=== PATIENT | male | born 1980 | race Caucasian/White ===

== ENCOUNTER 2018-12-05 12:06 | Emergency (ER) | payer BC, OTHER ==
--- OUTSIDE RECORDS SUMMARY | 2018-12-05 12:17 | XMS REPORT | Summary of Care ---
:1980 Author Organization [facility] Address [address] [place] [id number] Care Team Providers Name Role Phone Bryan Fernandes Primary Care Provider Encounter Details Date Type Department Care Team Description 11/20/2018 Orders Only [facility] Doctor Unassigned, No [address] [facility] Name [place] [phone] Allergies Active Allergy Reactions Severity Noted Date Comments Iodine Unknown - See comments 11/16/2015 Skin irration almendarez documented as of this encounter (statuses as of 11/20/2018) Medications Medication Sig Dispensed Refills Start Date End Date Status losartan potassium Take by mouth. 0 Active (LOSARTAN ORAL) escitalopram oxalate Take by mouth. 0 Active (LEXAPRO ORAL) documented as of this encounter (statuses as of 11/20/2018) Active Problems Not on filedocumented as of this encounter (statuses as of 11/20/2018) Social History Tobacco Use Types Packs/Day Years Used Date Never Smoker Alcohol Use Drinks/Week oz/Week Comments Yes 0 Standard drinks or equivalent 0.0 Sex Assigned at Date Recorded Not on file Job Start Date Occupation Industry Not on file Not on file Not on file Travel History Travel Start Travel End No recent travel history available. documented as of this encounter Last Filed Vital Signs Not on filedocumented in this encounter Plan of Treatment Health Maintenance Due Date Last Done Comments DTaP,Tdap,and Td Vaccines (1 - 1997 Tdap) INFLUENZA VACCINE (Retired 12/02/2018 version) PNEUMOCOCCAL 0-64 YEARS COMBINED Aged Out No longer eligible based on SERIES patient's age to complete this topic documented as of this encounter Procedures Procedure Name Priority Date/Time Associated Diagnosis Comments CONSENT/REFUSAL FOR Routine 11/20/2018 8:30 PM CDT DIAGNOSIS AND TREATMENT documented in this encounter Results Not on filedocumented in this encounter Insurance Payer Benefit Plan / Subscriber ID Effective Phone Address Type Group Dates [facility] [id number] 2015-Pres HMO/PPO/ HEALTHCARE HEALTHCARE PPO ent POS [facility] [id number] 2016-Pres [phone] PPO/POS ent [id number] [place] [address] documented as of this encounter
--- OUTSIDE RECORDS SUMMARY | 2018-12-05 12:17 | XMS REPORT ---
:1980 Author Organization [facility] Address [address] [place] [address] Care Team Providers Name Role Phone Unavailable Unavailable Unavailable Problems This patient has no known problems. Allergies, Adverse Reactions, Alerts This patient has no known allergies or adverse reactions. Medications This patient has no known medications.
--- OUTSIDE RECORDS SUMMARY | 2018-12-05 12:17 | XMS REPORT | Summary of Care ---
:1980 Author Organization [facility] Address [address] [place] [address] Care Team Providers Name Role Phone Bryan Fernandes Primary Care Provider Reason for Visit Reason Comments ITCHING Auth/Cert Status Reason Specialty Diagnoses / Referred By Referred To Procedures Contact Contact Emergency Medicine Diagnoses itching [facility] [address] [place] [address] [place] [address] Encounter Details Date Type Department Care Team Description 11/20/2018 Emergency [facility]-Emergency Ellen Chapman, Allergic reaction, Department PAC initial encounter [address] [place] [address] [facility] (Primary Dx) [place] [address] [facility] [address] [place] [address] Allergies Active Allergy Reactions Severity Noted Date Comments Iodine Unknown - See comments 11/16/2015 Skin irration almendarez documented as of this encounter (statuses as of 11/20/2018) Medications Medication Sig Dispensed Refills Start Date End Date Status losartan potassium Take by mouth. 0 Active (LOSARTAN ORAL) escitalopram oxalate Take by mouth. 0 Active (LEXAPRO ORAL) methylPREDNISolone Take by mouth 21 Each 0 11/20/2018 Active (MEDROL, MARY CARMEN,) 4 mg SEE-INSTRUCTIONS tabletsIndications: . follow package Allergic reaction, directions initial encounter documented as of this encounter (statuses as [...] of this encounter Last Filed Vital Signs Vital Sign Reading Time Taken Comments Blood Pressure 177/67 11/20/2018 11:51 PM CDT Pulse 76 11/20/2018 11:51 PM CDT Temperature 37.1 C (98.7 F) 11/20/2018 8:49 PM CDT Respiratory Rate 18 11/20/2018 11:51 PM CDT Oxygen Saturation 96% 11/20/2018 11:51 PM CDT Inhaled Oxygen Concentration - - Weight 138.3 kg (305 lb) 11/20/2018 8:49 PM CDT Height 177.8 cm (5' 10") 11/20/2018 8:49 PM CDT Body Mass Index 43.76 11/20/2018 8:49 PM CDT documented in this encounter Discharge Instructions AttachmentsThe following attachments cannot be sent through Care Everywhere.Allergic Reactions, General (Malaysian)documented in this encounter Plan of Treatment Health Maintenance Due Date Last Done Comments DTaP,Tdap,and Td Vaccines ( - 1997 Tdap) INFLUENZA VACCINE (Retired 12/02/2018 version) PNEUMOCOCCAL 0-64 YEARS COMBINED Aged Out No longer eligible based on SERIES patient's age to complete this topic documented as of this encounter Procedures Procedure Name Priority Date/Time Associated Diagnosis Comments NOTICE OF PRIVACY Routine 11/20/2018 8:30 PM CDT PRACTICES documented in this encounter Results Not on filedocumented in this encounter Visit Diagnoses Diagnosis Allergic reaction, initial encounter - Primary documented in this encounter Administered Medications Medication Order MAR Action Action Date Dose Rate Site diphenhydrAMINE (BENADRYL) tablet Given 11/20/2018 11:42 PM CDT 50 mg 50 mg 50 mg, Oral, ONCE, 1 dose, Mon11/21/18 at 0030, MARINA famotidine (PEPCID) tablet 40 mg Given 11/20/2018 11:43 PM CDT 40 mg 40 mg, Oral, ONCE, 1 dose, Mon11/21/18 at 0030, MARINA methylprednisolone sod succ Given 11/20/2018 11:42 PM 125 mg Right Dorsogluteal-IM (SOLU-MEDROL) injection 125 CDT mg 125 mg, Intramuscular, ONCE, 1 dose, Mon11/21/18 at 0030, STAT documented in this encounter Insurance Payer Benefit Plan Subscriber ID Effective Dates Phone Address Type / Group [employer] [facility] [id number] 2016-Phillip [phone] [address] PPO/POS [place] [id number] [place] [address] [phone] [id number] (Work) documented as of this encounter
[2018-12-05 13:51] LABS: Absolute Lymphocytes (CBC) 1.8 K/uL (0.7-4.9); Basophils % 0.6 % (0-1.3); Hematocrit 50.1 % (39.6-49.0); Lymphocytes % 26.2 % (15.3-44.8); MPV 8.5 fL (7.6-11.3); RBC Red Blood Cell Count 5.84 M/uL (4.33-5.43)
[2018-12-05 14:27] LABS: Albumin 3.9 g/dL (3.4-5.0); Bilirubin Direct 0.1 mg/dL (0-0.2); Bilirubin Total 0.4 mg/dL (0.2-1.0); Potassium 4.1 mmol/L (3.5-5.1); Protein, Total 7.4 g/dL (6.4-8.2)
--- NOTE | 2018-12-05 14:37 | RAD REPORT ---
EXAM DESCRIPTION: CT - Abdomen Pelvis Wo Contrast - 12/05/2018 2:06 pm CLINICAL HISTORY: ABD PAIN Patient also indicates pain is in the right upper quadrant COMPARISON: No comparisons None. TECHNIQUE: Axial [address] imaging of the abdomen and pelvis was performed without IV contrast. No IV contrast was given because of allergy, abnormal renal function, patient refusal or physician re quest. No oral contrast. All CT scans are performed using dose optimization technique as appropriate and may include automated exposure control or mA/KV adjustment according to patient size. FINDINGS: No suspicious findings in the lung bases. The liver, spleen and pancreas show no suspicious findings on non-contrast imaging. Gallbladder and b iliary tree are also without suspicious finding. Gallstones can be occult on CT imaging. No hydronephrosis or suspicious renal mass. No significant adrenal finding. Isodense renal masses an d pyelonephritis cannot be excluded in the absence of IV contrast. The urinary bladder is without sig nificant finding. No dilated bowel loops or bowel wall thickening. Appendix is normal. No free air, free fluid or infla mmatory stranding. No hernia, mass or bulky lymphadenopathy. No suspicious bony findings. IMPRESSION: Non-contrast enhanced CT abdomen and pelvis imaging show no significant or suspicious fi nding. Full assessment is limited is the absence of IV contrast.
--- NOTE | 2018-12-05 15:18 | ER ---
Nurse's Notes [facility] Name: Hadley Epstein Age: 37 yrs Sex: Male : 1980 Arrival Date: 12/05/2018 Time: 12:11 Bed 27 Private MD: Bryan Fernandes Diagnosis: Unspecified abdominal pain Presentation: 12/05 12:26 Presenting complaint: Patient states: i think my gall bladder needs to come out, i have tw2 had symptoms for a while now, i get upper abdominal pain,when i eat certain stuff it goes crazy, +N. Transition of care: patient was not received from another setting of care. Onset of symptoms was December 05, 2018. Risk Assessment: Do you want to hurt yourself or someone else? Patient reports no desire to harm self or others. Initial Sepsis Screen: Does the patient meet any 2 criteria? No. Patient's initial sepsis screen is negative. Does the patient have a suspected source of infection? No. Patient's initial sepsis screen is negative. Care prior to arrival: None. 12:26 Method Of Arrival: Ambulatory tw2 12:26 Acuity: RANJANA 3 tw2 Triage Assessment: 12:27 General: Appears in no apparent distress. obese, Behavior is calm, cooperative, tw2 appropriate for age. Pain: Complains of pain in abdomen. GI: Abdomen is round Reports upper abdominal pain, nausea. Historical: - Allergies: 12:29 Iodine; tw2 - Home Meds: 12:29 losartan oral oral [Active]; Wellbutrin Oral [Active]; Buspirone Oral [Active]; tw2 - PMHx: 12:29 Hypertension; tw2 - PSHx: 12:29 None; tw2 - Immunization history:: Adult Immunizations. - Social history:: Smoking status: Patient/guardian denies using tobacco, Patient uses alcohol, "i drink pretty heavily on the weekends, every weekend". - Ebola Screening: : Patient denies travel to an Ebola-affected area in the 21 days before illness onset. Screenin:00 Abuse screen: Denies threats or abuse. Denies injuries from another. Nutritional iw screening: No deficits noted. Tuberculosis screening: No symptoms or risk factors identified. Fall Risk IV access (20 points). Assessment: 13:00 General: Appears in no apparent distress. Behavior is calm, cooperative. Pain: iw Complains of pain in abdomen. Neuro: Level of Consciousness is awake, alert, obeys commands, Oriented to person, place, time, situation. Cardiovascular: Capillary refill < 3 seconds in bilateral fingers Patient's skin is warm and dry. Respiratory: Respiratory effort is even, unlabored, Respiratory pattern is regular. GI: Bowel sounds present X 4 quads. Abd is soft and non tender Reports upper abdominal pain, nausea. Derm: Skin is intact, is healthy with good turgor. Musculoskeletal: Range of motion: intact in all extremities. Vital Signs: 12:30 BP 156 / 106; Pulse 86; Resp 18; Temp 98.2(O); Pulse Ox 97% on R/A; Weight 136.08 kg tw2 (R); Height 5 ft. 10 in. (177.80 cm) (R); Pain 2/10; 13:30 BP 145 / 99; Pulse 81; Resp 15; Pulse Ox 98% on R/A; rv 14:30 BP 141 / 96; Pulse 82; Resp 15; Pulse Ox 98% on R/A; rv 15:29 BP 138 / 95; Pulse 88; Resp 14; Pulse Ox 97% on R/A; rv 12:30 Body Mass Index 43.05 (136.08 kg, 177.80 cm) tw2 ED Course: 12:11 Patient arrived in ED. mr 12:12 Bryan Fernandes MD is Private Physician. mr 12:27 Triage completed. tw2 12:27 Arm band placed on. tw2 13:17 Daphne Carcamo, FRANKY is Primary Nurse. iw 13:20 Yoan Ruano NP is PHCP. pm1 13:20 Tung Blood MD is Attending Physician. pm1 13:39 Placed in gown. Bed in low position. Call light in reach. Verbal reassurance given. jp3 Pulse ox on. NIBP on. 13:39 Initial lab(s) drawn, by me, sent to lab. Inserted saline lock: 20 gauge in right jp3 antecubital area, using aseptic technique. Blood collected. Patient maintains SpO2 saturation greater than 95% on room air. 13:42 Lipase Sent. jp3 13:42 Hepatic Function Sent. jp3 13:42 Creatinine for Radiology Sent. jp3 13:42 CBC with Diff Sent. jp3 13:42 Basic Metabolic Panel Sent. jp3 14:27 CT Abd/Pelvis - Without Contrast In Process Unspecified. EDMS 15:29 No provider procedures requiring assistance completed. IV discontinued, intact, rv bleeding controlled, No redness/swelling at site. Pressure dressing applied. Administered Medications: No medications were administered Outcome: 15:18 Discharge ordered by MD. pm1 15:30 Discharged to home ambulatory. rv 15:30 Condition: improved 15:30 Discharge instructions given to patient, Instructed on discharge instructions, follow up and referral plans. medication usage, Demonstrated understanding of instructions, follow-up care, medications, Prescriptions given X 1. 15:57 Patient left the ED. rv Signatures: Dispatcher [employer] EDMD Amelia Bhatt Irene, RN RN iw Yoan Ruano NP NURSING ASSISTANT pm1 Carmen Mena RN RN tw2 Jonn Gonzalez RN RN rv Doc Melchor jp3
--- NOTE | 2018-12-05 15:18 | EDPHYS ---
Physician Documentation [facility] Name: Hadley Epstein Age: 37 yrs Sex: Male : 1980 Arrival Date: 12/05/2018 Time: 12:11 Bed 27 Private MD: Bryan Fernandes ED Physician Tung Blood HPI: 12/05 13:35 This 37 yrs old Male presents to ER via Ambulatory with complaints of pm1 Abdominal Pain. 13:35 The patient presents with abdominal pain in the epigastric area. Onset: The pm1 symptoms/episode began/occurred ongoing for multiple months. Currently not in pain. The symptoms do not radiate. Associated signs and symptoms: Pertinent positives: nausea with pain, Pertinent negatives: constipation, diarrhea, dysuria, fever, shortness of breath, vomiting. The symptoms are described as dull. Modifying factors: The symptoms are alleviated by water, OTC gas medications. the symptoms are aggravated by food, certain drinks. like monsters. Severity of pain: in the emergency department the pain has resolved is a 0 / 10. The patient has not experienced similar symptoms in the past. The patient has not recently seen a physician, the patient's primary care provider is Dr. Birch. Historical: - Allergies: 12:29 Iodine; tw2 - Home Meds: 12:29 losartan oral oral [Active]; Wellbutrin Oral [Active]; Buspirone Oral [Active]; tw2 - PMHx: 12:29 Hypertension; tw2 - PSHx: 12:29 None; tw2 - Immunization history:: Adult Immunizations. - Social history:: Smoking status: Patient/guardian denies using tobacco, Patient uses alcohol, "i drink pretty heavily on the weekends, every weekend". - Ebola Screening: : Patient denies travel to an Ebola-affected area in the 21 days before illness onset. ROS: 13:35 Constitutional: Negative for fever, chills, and weight loss, Eyes: Negative for injury, pm1 pain, redness, and discharge, ENT: Negative for injury, pain, and discharge, Neck: Negative for injury, pain, and swelling, Cardiovascular: Negative for chest pain, palpitations, and edema, Respiratory: Negative for shortness of breath, cough, wheezing, and pleuritic chest pain. 13:35 Back: Negative for injury and pain, MS/Extremity: Negative for injury and deformity, Skin: Negative for injury, rash, and discoloration, Neuro: Negative for headache, weakness, numbness, tingling, and seizure. 13:35 Abdomen/GI: Positive for abdominal pain, nausea, Negative for vomiting, diarrhea. Exam: 13:35 Constitutional: This is a well developed, well nourished patient who is awake, alert, pm1 and in no acute distress. Head/Face: Normocephalic, atraumatic. Eyes: Pupils equal round and reactive to light, extra-ocular motions intact. Lids and lashes normal. Conjunctiva and sclera are non-icteric and not injected. Cornea within normal limits. Periorbital areas with no swelling, redness, or edema. ENT: Nares patent. No nasal discharge, no septal abnormalities noted. Tympanic membranes are normal and external auditory canals are clear. Oropharynx with no redness, swelling, or masses, exudates, or evidence of obstruction, uvula midline. Mucous membranes moist. Neck: Trachea midline, no thyromegaly or masses palpated, and no cervical lymphadenopathy. Supple, full range of motion without nuchal rigidity, or vertebral point tenderness. No Meningismus. Chest/axilla: Normal chest wall appearance and motion. Nontender with no deformity. No lesions are appreciated. Cardiovascular: Regular rate and rhythm with a normal S1 and S2. No gallops, murmurs, or rubs. Normal PMI, no JVD. No pulse deficits. Respiratory: Lungs have equal breath sounds bilaterally, clear to auscultation and percussion. No rales, rhonchi or wheezes noted. No increased work of breathing, no retractions or nasal flaring. 13:35 Back: No spinal tenderness. No costovertebral tenderness. Full range of motion. Skin: Warm, dry with normal turgor. Normal color with no rashes, no lesions, and no evidence of cellulitis. MS/ Extremity: Pulses equal, no cyanosis. Neurovascular intact. Full, normal range of motion. 13:35 Abdomen/GI: Inspection: abdomen appears normal, Bowel sounds: normal, Palpation: abdomen is soft and non-tender, in all quadrants, mass, is not appreciated, rebound tenderness, is not appreciated. 13:35 Neuro: Orientation: is normal, Motor: is normal, moves all fours. Vital Signs: 12:30 BP 156 / 106; Pulse 86; Resp 18; Temp 98.2(O); Pulse Ox 97% on R/A; Weight 136.08 kg tw2 (R); Height 5 ft. 10 in. (177.80 cm) (R); Pain 2/10; 13:30 BP 145 / 99; Pulse 81; Resp 15; Pulse Ox 98% on R/A; rv 14:30 BP 141 / 96; Pulse 82; Resp 15; Pulse Ox 98% on R/A; rv 15:29 BP 138 / 95; Pulse 88; Resp 14; Pulse Ox 97% on R/A; rv 12:30 Body Mass Index 43.05 (136.08 kg, 177.80 cm) tw2 MDM: 13:20 Patient medically screened. pm1 15:17 Data reviewed: vital signs. Data interpreted: Pulse oximetry: on room air is 97 %. pm1 Interpretation: normal. Counseling: I had a detailed discussion with the patient and/or guardian regarding: the historical points, exam findings, and any diagnostic results supporting the discharge/admit diagnosis, lab results, radiology results, the need for outpatient follow up, to return to the emergency department if symptoms worsen or persist or if there are any questions or concerns that arise at home. 15:17 ED course: Explained to patient the need for follow up with GI for EGD. Patient's with pm1 chest pain sensation with eating that resolves "with drinking lots water to push it down." Explained follow up U/S with PCP or GI . 12/05 13:27 Order name: Basic Metabolic Panel; Complete Time: 15:17 pm12/05 13:27 Order name: CBC with Diff pm1 12/05 13:27 Order name: Creatinine for Radiology; Complete Time: 15:17 pm12/05 13:27 Order name: Hepatic Function; Complete Time: 15:17 pm12/05 13:27 Order name: Lipase; Complete Time: 15:17 pm12/05 13:56 Order name: CBC with Automated Diff EDMS 12/05 13:27 Order name: IV Saline Lock; Complete Time: 13:42 pm12/05 13:27 Order name: Labs collected and sent; Complete Time: 13:42 pm12/05 13:28 Order name: CT Abd/Pelvis - Without Contrast; Complete Time: 15:32 pm1 Administered Medications: No medications were administered Disposition: 16:19 Co-signature as Attending Physician, Tung Blood MD. rn Disposition: 12/05/18 15:18 Discharged to Home. Impression: Unspecified abdominal pain. - Condition is Stable. - Discharge Instructions: Abdominal Pain, Adult. - Prescriptions for Bentyl 20 mg Oral Tablet - take 1 tablet by ORAL route every 6 hours As needed; 20 tablet. - Work release form, Medication Reconciliation Form, Thank You Letter, Antibiotic Education, Prescription Opioid Use form. - Follow up: Emergency Department; When: As needed; Reason: Worsening of condition. Follow up: Private Physician; When: 2 - 3 days; Reason: Recheck today's complaints, Continuance of care, Re-evaluation by your physician. - Problem is new. - Symptoms have improved. Signatures: Dispatcher [employer] EDMS Tung Blood MD MD rn Yoan Ruano, [employer]OCKSTITCH T[employer]EL ELASTIC OPERATOR pm1 Carmen Mena RN RN tw2 Jonn Gonzalez RN RN rv Corrections: (The following items were deleted from the chart) 15:57 15:18 12/05/2018 15:18 Discharged to Home. Impression: Unspecified abdominal pain. rv Condition is Stable. Forms are Medication Reconciliation Form, Thank You Letter, Antibiotic Education, Prescription Opioid Use. Follow up: Emergency Department; When: As needed; Reason: Worsening of condition. Follow up: Private Physician; When: 2 - 3 days; Reason: Recheck today's complaints, Continuance of care, Re-evaluation by your physician. Problem is new. Symptoms have improved. pm1
== END 2018-12-05 15:57 | disposition home or self-care (01) ==
LOC: ER 12:06
DX: R10.13 Epigastric pain (principal); I10 Essential (primary) hypertension; Z91.048 Other nonmedicinal substance allergy status
CPT/HCPCS: 36415; 74176; 80048; 80076; 83690; 85025; 99284

== ENCOUNTER 2024-04-19 15:52 | Emergency (ER) | payer BC, SELFPAY ==
[2024-04-19] MEDS ORDERED: AMIODARONE HCL 150 MG/3 ML INJ IV ONE (15:59)
[2024-04-19] MEDS ORDERED: D5W 100 ML IV ONE (15:59)
[2024-04-19] MEDS ORDERED: Magnesium Sulfate 2gm IVPB 2 G/50 ML BAG IV ONE (15:59)
--- NOTE | 2024-04-19 16:02 | ER ---
Nurse's Notes [facility] Name: Hadley Epstein Age: 43 yrs Sex: Male : 1980 Arrival Date: 04/19/2024 Time: 15:52 Bed 4 Private MD: Diagnosis: Subsequent ST elevation (STEMI) myocardial infarction of unspecified site;Torsades Presentation: 04/19 15:54 Acuity: RANJANA 1 ss 15:54 Chief complaint: EMS states: Reflux discomfort all day and CP that began 30 minutes ss prior to calling 911. EMS reports upon arrival, pt was diaphoretic, SOB then suddenly became unresponsive, cardiac rhythm VFIB. EMS defibrillated x 1. Pt became responsive again, is awake and talking. Coronavirus screen: Client denies travel out of the [place] in the last 14 days. Ebola Screen: Patient denies exposure to infectious person. Patient denies travel to an Ebola-affected area in the 21 days before illness onset. Initial Sepsis Screen: Does the patient meet any 2 criteria? RR > 20 per min. HR > 90 bpm. Does the patient have a suspected source of infection? No. Patient's initial sepsis screen is negative. Risk Assessment: Do you want to hurt yourself or someone else? Patient reports no desire to harm self or others. Onset of symptoms was April 19, 2024. 15:54 Method Of Arrival: EMS: [facility] 15:58 Care prior to arrival: IO to L tibia. ss Historical: - Allergies: 15:55 Iodine; ss - PMHx: 15:55 Hypertension; ss - Social history:: Smoking status: Patient denies any tobacco usage or history of. Screenin:00 [facility] ED Fall Risk Assessment (Adult) History of falling in the last 3 months, aa5 including since admission No falls in past 3 months (0 pts) Confusion or Disorientation No (0 pts) Intoxicated or Sedated No (0 pts) Impaired Gait Yes (1 pt) Mobility Assist Device Used Yes (1 pt) Altered Elimination Yes (1 pt) Score/Fall Risk Level 3 or more points = High Risk Oriented to surroundings, Maintained a safe environment, Educated pt \T\ family on fall prevention, incl call for assistance when getting out of bed. Abuse screen: Denies threats or abuse. Nutritional screening: No deficits noted. Tuberculosis screening: No symptoms or risk factors identified. Assessment: 15:55 General: Appears distressed, uncomfortable, Behavior is cooperative. Pain: Complains of aa5 pain in chest Pain radiates to left arm Pain currently is 8 out of 10 on a pain scale. Quality of pain is described as pressure, sharp, Pain began today, pt reports he called 911 for chest pain. Is continuous. Neuro: Level of Consciousness is awake, alert, obeys commands, Oriented to person, place, time, situation. Cardiovascular: Reports chest pain, diaphoresis, Heart tones S1 S2 present Rhythm is regular. Respiratory: Airway is patent Respiratory effort is even, labored, Respiratory pattern is regular, symmetrical, tachypnea. GI: Abdomen is obese. : No signs and/or symptoms were reported regarding the genitourinary system. EENT: No signs and/or symptoms were reported regarding the EENT system. Derm: Skin is diaphoretic, Skin is pale, Face is cyanotic and velez Skin temperature is cool. Musculoskeletal: No signs and/or symptoms reported regarding the musculoskeletal system. 16:00 General: Attempted to contact [facility]. No answer x2. Sent text message to [facility] Director of Transfer Center who reported all transfer coordinators are on other calls and would call back shortly. . 16:10 Reassessment: [facility] accepting pt to ER at this time. Jing Velázquez, early childhood coordinator, Dr. Tay accepting physician. 16:10 General: Received call from Transfer Center, STEMI diagnosis provided. Placed on hold [facility] awaiting a physician to speak with Dr Madden. [facility] called back with acceptance and call with [facility] was ended.. 16:17 Reassessment: Patient states symptoms have not improved. aa5 16:17 Pain: Pain currently is 8 out of 10 on a pain scale. Neuro: Level of Consciousness is aa5 awake, alert, obeys commands, Oriented to person, place, time, situation. Respiratory: Airway is patent Respiratory effort is even, labored, Respiratory pattern is regular, symmetrical, tachypnea. Derm: Skin is pale, Face skin color (cyanosis) has improved. 16:18 Reassessment: Report given to FRANKY Helms at [facility]. 16:31 Neuro: Level of Consciousness is awake, alert, obeys commands, Oriented to person, aa5 place, time, situation. Respiratory: Airway is patent Respiratory effort is even, unlabored, Respiratory pattern is regular, symmetrical. Derm: Skin is clammy, Skin is pale, Skin temperature is cool. 16:31 Pain: Pain currently is 8 out of 10 on a pain scale. aa5 16:32 Reassessment: Life flight at bedside now. Report given to life flight. . aa5 16:50 Reassessment: Spoke to pt's mother [id number], notified of pt's belongins being aa5 left behind in a bag in ER room 4 (blue shirt and black Iphone with black case). Belongings given to security. . Vital Signs: 15:55 BP 161 / 120; Pulse 134; Weight 138.35 kg; ss 15:55 Resp 26 S; Temp 97.7(O); Pulse Ox 90% on R/A; aa5 15:55 Pulse Ox 94% on 5 lpm NC; aa5 16:05 BP 161 / 118; Pulse 110; Resp 30 S; Pulse Ox 93% on 5 lpm NC; aa5 16:15 Pulse Ox 88% on 6 lpm NC; aa5 16:17 Pulse Ox 97% on Non-rebreather mask; aa5 16:30 BP 174 / 127; Pulse 106; Resp 25 S; Temp 97.7(O); Pulse Ox 98% on Non-rebreather mask; aa5 ED Course: 15:50 Inserted saline lock: 20 gauge in right antecubital area, using aseptic technique. ss ,using aseptic technique. Insertion by FRANKY Avitia Blood collected. Flushed with 10 mL NS. 15:54 Patient arrived in ED. ss 15:54 Arm band placed on left wrist. ss 15:54 Patient has correct armband on for positive identification. Bed in low position. Call aa5 light in reach. Side rails up X2. Client placed on continuous cardiac and pulse oximetry monitoring. NIBP monitoring applied. electronic technologist on. Pulse ox on. NIBP on. 15:55 Triage completed. ss 15:55 Ken Madden DO is Attending Physician. ms3 15:55 Inserted saline lock: 18 gauge in left wrist, using aseptic technique. Blood collected. ss 15:55 Oxygen administration via nasal cannula 5L/min. VO to maintain O2 sat >92%. aa5 16:06 Initial lab(s) drawn, by ED staff, sent to lab. iw 16:24 Adore Solomon, RN is Primary Nurse. aa5 16:40 No provider procedures requiring assistance completed. Patient transferred, IV remains aa5 in place. Administered Medications: 16:03 Drug: Magnesium Sulfate IVPB 2 grams IVPB once over 2 hrs Route: IVPB; Infused Over: 2 iw hrs; Site: right antecubital; 16:23 Follow up: IV Status: Completed infusion; VO to administer over 20 mins aa5 16:03 Drug: amiodarone IVPB 150 mg 100 ml IVPB once over 10 mins; (mix in D5W) Volume: 100 iw ml; Route: IVPB; Infused Over: 10 mins; Site: left wrist; 16:13 Follow up: IV Status: Completed infusion aa5 16:15 Drug: morphine IVP or IV 4 mg IVP once over 4 mins Route: IVP; Infused Over: 4 mins; aa5 Site: right antecubital; 16:20 Follow up: Response: No adverse reaction aa5 16:15 Drug: Aspirin PO Chewable Tablet 324 mg PO once; 81 mg tablets x 4. VO at 1615 Route: aa5 PO; 16:45 Follow up: Response: No adverse reaction aa5 16:19 Drug: Heparin ([place]-Bolus No thrombolytic) - HEParin IVP 60 units/kg IVP once; Max 5000 iw units {Co-Signature: kajal (Adore Solomon RN).} Route: IVP; Site: right antecubital; 16:31 Follow up: Response: No adverse reaction aa5 16:20 Drug: Heparin ([place] Drip) 12 units/kg/hr - ([place] [address] units, D5W IV 500 ml) IV at iw calculated rate Per protocol; Max initial rate 1000 units/hr {Co-Signature: aaLarissa (Adore Solomon RN).} Route: IV; Rate: calculated rate; Site: right antecubital; 16:43 Follow up: IV Status: Infusion continued upon transfer aa5 16:25 Not Given (Physician Discretion): [id number] mg PO once aa5 16:25 Drug: Clopidogrel PO 600 mg PO once Route: PO; aa5 16:43 Follow up: Response: No adverse reaction aa5 16:28 Drug: morphine IVP or IV 4 mg IVP once over 4 mins Route: IVP; Infused Over: 4 mins; aa5 Site: right antecubital; 16:43 Follow up: Response: No adverse reaction aa5 16:31 Drug: Nitroglycerin Sublingual 0.4 mg Sublingual once; every five minute if needed x3 aa5 Route: Sublingual; 16:32 Follow up: MD at bedside, life flight at bedside, pt was only given Nitro x 1. aa5 Medication: 16:43 VIS not applicable for this client. aa5 Intake: Outcome: 16:01 ER care complete, transfer ordered by MD. ms3 16:32 Transferred by helicopter Transfer form completed. X-rays sent w/ patient. Note: [address], pt's mother was notified, obtained verbal consent from pt to speak to pt's mother ([phone]) [id number] and to speak to his ex- Nika. 16:32 Condition: stable aa5 16:32 Instructed on the need for transfer, Demonstrated understanding of instructions, 16:43 Patient left the ED. aa5 Signatures: Daphne Carcamo, RN RN Adore Solomon, RN RN aa5 Sonia Peterson RN RN Ken Madden DO DO ms3 Maddie Duncan, RN RN kb3 Adore Solomon RN aa5 Corrections: (The following items were deleted from the chart) 15:58 15:54 Chief complaint: ss ss 16:10 15:54 Chief complaint: EMS states: Reflux discomfort all day and CP that began 30 ss minutes prior to calling 911. EMS reports upon arrival, pt was diaphoretic, SOB then suddenly became unresponsive, cardiac rhythm pulseless VTACH. EMS defibrillated x 1. Pt became responsive again. ss 16:25 16:25 Aspirin PO Chewable Tablet 324 mg PO aa5 aa5 17:09 16:12 Reassessment: [facility] accepting pt to ER at this time. Jing Vleázquez, early childhood coordinator, Dr. Tay accepting physician. ss
--- NOTE | 2024-04-19 16:02 | EDPHYS ---
Physician Documentation [facility] Name: Hadley Epstein Age: 43 yrs Sex: Male : 1980 Arrival Date: 04/19/2024 Time: 15:52 Bed 4 Private MD: ED Physician Ken Madden HPI: 04/19 15:57 This 43 yrs old Male presents to ER via Unassigned with complaints of Chest Pain, ms3 Cardiac Arrest. 16:22 43-year-old male with past medical history of hypertension presents to the emergency ms3 department via [facility]. Patient states he began having chest pain at approximately 1:15 PM today. EMS notes on their arrival patient was complaining of chest pain. After patient was loaded into a ambulance he experienced cardiac arrest with ventricular tachycardia. CPR was started and patient was defibrillated x 1. After defibrillation patient was then noted to be alert and orient x 4 and complaining of chest pain. Patient states he has experienced GERD all day today.. Historical: - Allergies: 15:55 Iodine; ss - PMHx: 15:55 Hypertension; ss - Social history:: Smoking status: Patient denies any tobacco usage or history of. ROS: 16:22 Constitutional: Negative for fever, and chills. ms3 16:22 Respiratory: Negative for shortness of breath, cough, wheezing, and pleuritic chest pain, 16:22 Cardiovascular: Positive for chest pain, 16:22 Skin: Positive for diaphoresis, Exam: 15:57 ECG was reviewed by the Attending Physician. ms3 16:22 Constitutional: This is a well developed, well nourished patient who is awake, alert, ms3 and in no acute distress. Head/Face: Normocephalic, atraumatic. Cardiovascular: Regular rate and rhythm with a normal S1 and S2. No gallops, murmurs, or rubs. Normal PMI, no JVD. No pulse deficits. Respiratory: Lungs have equal breath sounds bilaterally, clear to auscultation and percussion. No rales, rhonchi or wheezes noted. No increased work of breathing, no retractions or nasal flaring. Abdomen/GI: Soft, non-tender, with normal bowel sounds. No distension or tympany. No guarding or rebound. No evidence of tenderness throughout. 16:22 Skin: Appearance: Moisture: diaphoretic, Vital Signs: 15:55 BP 161 / 120; Pulse 134; Weight 138.35 kg; ss 15:55 Resp 26 S; Temp 97.7(O); Pulse Ox 90% on R/A; aa5 15:55 Pulse Ox 94% on 5 lpm NC; aa5 16:05 BP 161 / 118; Pulse 110; Resp 30 S; Pulse Ox 93% on 5 lpm NC; aa5 16:15 Pulse Ox 88% on 6 lpm NC; aa5 16:17 Pulse Ox 97% on Non-rebreather mask; aa5 16:30 BP 174 / 127; Pulse 106; Resp 25 S; Temp 97.7(O); Pulse Ox 98% on Non-rebreather mask; aa5 MDM: 15:55 Medical Screening Exam initiated ms3 16:12 ED course: Patient accepted at [facility] ED. LF notified of transfer.. ms3 16:22 Differential diagnosis: abnormal EKG, acute myocardial infarction, coronary artery ms3 disease. The patient was given aspirin in the Emergency Department. Data reviewed: vital signs, nurses notes, EKG, and as a result, I will transfer patient. Consideration of Admission/Observation Will transfer per Dr Marti- Cardiology. Management of patient was discussed with the following: Boiler/Chiller Technician: Dr Marti- Cardiology. I considered the following discharge prescriptions or medication management in the emergency department Medications were administered in the Emergency Department. See MAR. Independent interpretation of the following test(s) in the Emergency Department EKG: See my EKG interpretation above. Historians other than the Patient: EMS: [facility]. Counseling: I had a detailed discussion with the patient and/or guardian regarding the historical points, exam findings, and any diagnostic results supporting the discharge/admit diagnosis, the need to transfer to another facility. Response to treatment: There is no appreciated change of the patient's symptoms at this time, Still having chest pain. ED course: Discussed case with Dr Marti. He is unable to take patient to cath lab technologist. Recommends patient to be transferred.. 19:34 ED course: Patient transferred to [facility] ED. Attempted transfer to [address] and was unable to reach transfer center. Attempted to transfer to [facility] and were unable to reach their transfer center.. 04/19 15:56 Order name: Basic Metabolic Panel; Complete Time: 16:36 ms3 04/19 15:56 Order name: CBC with Diff; Complete Time: 16:36 ms3 04/19 15:56 Order name: Magnesium; Complete Time: 16:36 ms3 04/19 15:56 Order name: Troponin HS; Complete Time: 16:36 ms3 04/19 15:56 Order name: EKG; Complete Time: 15:56 ms3 04/19 15:56 Order name: Cardiac monitoring; Complete Time: 16:25 ms3 04/19 15:56 Order name: EKG - Nurse/Tech; Complete Time: 16:25 ms3 04/19 15:56 Order name: IV Saline Lock; Complete Time: 16:25 ms3 04/19 15:56 Order name: Labs collected and sent; Complete Time: 16:25 ms3 04/19 15:56 Order name: O2 Per Protocol; Complete Time: 16:25 ms3 04/19 15:56 Order name: O2 Sat Monitoring; Complete Time: 16:25 ms3 EC:57 Rate is 135 beats/min. Rhythm is regular. Left axis deviation noted. SD interval is ms3 normal. QRS interval is normal. Clinical impression: Lateral STEMI. Interpreted by me. Reviewed by me. Administered Medications: 16:03 Drug: Magnesium Sulfate IVPB 2 grams IVPB once over 2 hrs Route: IVPB; Infused Over: 2 iw hrs; Site: right antecubital; 16:23 Follow up: IV Status: Completed infusion; VO to administer over 20 mins aa5 16:03 Drug: amiodarone IVPB 150 mg 100 ml IVPB once over 10 mins; (mix in D5W) Volume: 100 iw ml; Route: IVPB; Infused Over: 10 mins; Site: left wrist; 16:13 Follow up: IV Status: Completed infusion aa5 16:15 Drug: morphine IVP or IV 4 mg IVP once over 4 mins Route: IVP; Infused Over: 4 mins; aa5 Site: right antecubital; 16:20 Follow up: Response: No adverse reaction aa5 16:15 Drug: Aspirin PO Chewable Tablet 324 mg PO once; 81 mg tablets x 4. VO at 1615 Route: aa5 PO; 16:45 Follow up: Response: No adverse reaction aa5 16:19 Drug: Heparin ([place]-Bolus No thrombolytic) - HEParin IVP 60 units/kg IVP once; Max 5000 iw units {Co-Signature: aaLarissa (Adore Solomon RN).} Route: IVP; Site: right antecubital; 16:31 Follow up: Response: No adverse reaction aa5 16:20 Drug: Heparin ([place] Drip) 12 units/kg/[place] - ([place] [address] units, D5W IV 500 ml) IV at iw calculated rate Per protocol; Max initial rate 1000 units/hr {Co-Signature: aa5 (Adore Solomon RN).} Route: IV; Rate: calculated rate; Site: right antecubital; 16:43 Follow up: IV Status: Infusion continued upon transfer aa5 16:25 Not Given (Physician Discretion): [id number] mg PO once aa5 16:25 Drug: Clopidogrel PO 600 mg PO once Route: PO; aa5 16:43 Follow up: Response: No adverse reaction aa5 16:28 Drug: morphine IVP or IV 4 mg IVP once over 4 mins Route: IVP; Infused Over: 4 mins; aa5 Site: right antecubital; 16:43 Follow up: Response: No adverse reaction aa5 16:31 Drug: Nitroglycerin Sublingual 0.4 mg Sublingual once; every five minute if needed x3 aa5 Route: Sublingual; 16:32 Follow up: MD at bedside, life flight at bedside, pt was only given Nitro x 1. aa5 Disposition Summary: 04/19/24 16:01 Transfer Ordered Notes: Transfer Location: [facility] ms3 Reason: Higher level of care ms3 Condition: Stable ms3 Problem: new ms3 Symptoms: are unchanged ms3 Accepting Physician: (04/19/24 16:43) aa5 Diagnosis - Subsequent [address] elevation (STEMI) myocardial infarction of unspecified site ms3 - Torsades ms3 Forms: - Medication Reconciliation Form ms3 - SBAR form ms3 Signatures: Dispatcher [employer] Daphne Doyle RN RN iw Adore Solomon, RN RN aa5 Sonia Peterson RN RN ss Antonio Vela, LINE DEPARTMENT SUPERVISOR-C LINE DEPARTMENT SUPERVISOR-Cla1 Ken Madden, DO ms3 Adore Solomon RN aa5 Corrections: (The following items were deleted from the chart) 15:56 15:56 BASIC METABOLIC PANEL+C.LAB.BRZ ordered. EDMS EDMS 15:56 15:56 CBC+H.LAB.BRZ ordered. EDMS EDMS 15:56 15:56 MAGNESIUM+C.LAB.BRZ ordered. EDMS EDMS 15:56 15:56 Troponin High Sensitivity+C.LAB.BRZ ordered. EDMS EDMS 16:02 15:57 Rate is 135 beats/min. Rhythm is regular. Left axis deviation noted. SD interval ms3 is normal. QRS interval is normal. Clinical impression: Septal RI - acute. Interpreted by me. Reviewed by me. ms3 16:43 16:01 ms3 aa5
[2024-04-19] MEDS ORDERED: MORPHINE 4 MG/ML SYR ONE ×2 (16:07→16:29)
[2024-04-19] MEDS ORDERED: ASPIRIN 81 MG CHEWABLE TABLET ONE (16:07)
[2024-04-19 16:13] LABS: Absolute Basophils 0.1 K/uL (0-0.5); Absolute Eosinophils 0.1 K/uL (0-0.5); Absolute Lymphocytes (CBC) 6.5 K/uL (0.7-4.9); Absolute Monocytes 0.7 K/uL (0.1-1.3); Absolute Neutrophil 7.2 K/uL (1.8-8.0); Basophils % 0.5 % (0-1.3); Hematocrit 57.4 % (39.6-49.0); Hemoglobin 19.4 g/dL (13.6-17.9); Lymphocytes % 44.6 % (15.3-44.8); MCH 29.4 pg (27.0-35.0); MCHC 33.8 g/dL (32.0-36.0); MCV 87.1 fL (80-100); MPV 8.6 fL (7.6-11.3); Monocytes % 4.7 % (3.3-12.3); Neutrophils % 49.2 % (41.7-73.7); Nucleated Red Blood Cells % 0.3 % (0-0); Platelets 284 thou/uL (152-406); RBC Red Blood Cell Count 6.59 M/uL (4.33-5.43); Red Cell Distribution Width 15.7 % (12.1-15.2)
[2024-04-19] MEDS ORDERED: HEPARIN/D5W 25,000 UNIT/500 ML BAG IV ONE (16:17)
[2024-04-19] MEDS ORDERED: HEPARIN 5000 UNIT/ML 1 ML VIAL ONE (16:17)
[2024-04-19] MEDS ORDERED: CLOPIDOGREL 75 MG TABLET ONE (16:18)
[2024-04-19 16:30] LABS: Anion Gap 23.3 mEq/L (5.0-15.0); Magnesium 1.9 mg/dL (1.6-2.4); Potassium 3.3 mEq/L (3.5-5.1); Troponin High Sensitivity 18.5 pg/mL (<58.9)
[2024-04-19] MEDS ORDERED: NITROGLYCERIN 0.4 MG/TAB SL ONE (16:30)
[2024-04-19 16:49] VITALS: BP 161/120; TEMP 97.7; O2SAT 97
--- NOTE | 2024-04-25 13:12 | EKG ---
Test Date: 2024-04-19 Test Time: 16:12:38 Automation Qa Analyst: CLARIBEL MEASUREMENT RESULTS: Intervals: Rate: 111 WY: 166 QRSD: 106 QT: 334 QTc: 454 Rancocas: P: 61 WY: 166 QRS: -52 T: -13 INTERPRETIVE STATEMENTS: Sinus tachycardia Left axis deviation Septal infarct, age undetermined Lateral injury pattern ACUTE TN / STEMI Abnormal ECG Compared to ECG 04/19/2024 15:54:18 Supraventricular tachycardia no longer present Ventricular premature complex(es) no longer present ST (T wave) deviation no longer present Myocardial infarct finding still present Electronically Signed On 04-25-24 13:03:30 LABORER CUTTING TOOL by Marcin Soto
--- NOTE | 2024-04-25 13:12 | EKG ---
Test Date: 2024-04-19 Test Time: 15:54:18 Clay Miner: STACI MEASUREMENT RESULTS: Intervals: Rate: 135 LA: QRSD: 92 QT: 394 QTc: 591 Leroy: P: LA: QRS: -66 T: 29 INTERPRETIVE STATEMENTS: Supraventricular tachycardia with occasional premature ventricular complexes Left axis deviation Septal infarct, age undetermined Marked ST abnormality, possible inferior subendocardial injury Abnormal ECG No previous ECG available for comparison Electronically Signed On 04-25-24 13:03:33 TUNGSTEN REFINER by Marcin Soto
== END 2024-04-19 16:43 | disposition short-term general hospital (02) ==
LOC: ER 15:52
DX: I22.9 Subsequent ST elevation (STEMI) myocardial infarction of unspecified site (principal); I21.9 Acute myocardial infarction, unspecified; I47.21 Torsades de pointes; I10 Essential (primary) hypertension
CPT/HCPCS: 36415; 80048; 83735; 84484; 85025; 93005; 99285; J0282; J1644; J3475